=== PATIENT | male | born 1990 | race Caucasian/White ===

== ENCOUNTER 2018-10-30 23:20 | Emergency (ER) | payer MEDICAID ==
--- NOTE | 2018-10-30 23:33 | EDM.PDOC ---
ED HPI GENERAL MEDICAL PROBLEM - General Chief Complaint: General Stated Complaint: Dental Pain Time Seen by Provider: 10/30/18 23:25 Source of Information: Reports: Patient History Limitations: Reports: No Limitations - History of Present Illness INITIAL COMMENTS - FREE TEXT/NARRATIVE: Patient states he is here tonight secondary to a fractured tooth is half for about 9 months of the pains got worse last 3 days he took one naproxen about an hour before arrival here and it does not work his pain is 8 out of 10 throbbing he has not seen a dentist secondary to no dental insurance he denies any trouble eating drinking smoking no trouble with swallowing no throat tightness no drainage from the tooth no fever or sinus pain no headache no vision issues Duration: Day(s): Quality: Reports: Ache, Throbbing Severity: Moderate Improves with: Reports: None Treatments [employer]: Reports: NSAIDS ED ROS GENERAL - Review of Systems Review Of Systems: See Below Constitutional: Denies: Fever, Chills, Malaise, Weakness HEENT: Reports: Dental Pain. Denies: Eye Discharge, Eye Pain, Nose Pain, Rhinitis, Sinus Problem, Throat Pain, Throat Swelling Respiratory: Reports: No Symptoms Cardiovascular: Reports: No Symptoms Endocrine: Reports: No Symptoms GI/Abdominal: Reports: No Symptoms : Reports: No Symptoms Musculoskeletal: Reports: No Symptoms Skin: Reports: No Symptoms Neurological: Reports: No Symptoms Immunologic: Reports: No Symptoms ED EXAM, GENERAL - Physical Exam Exam: See Below Exam Limited By: No Limitations General Appearance: Alert, WD/WN, No Apparent Distress Eye Exam: Bilateral Eye: PERRL, Other (Normal EOMI) Ears: Normal External Exam Nose: Normal Inspection, Normal Mucosa Throat/Mouth: Normal Inspection, Normal Lips, Normal Teeth, Normal Gums, Normal Oropharynx, Normal Voice, No Airway Compromise, Other (Noted partial fracture to #30 no signs or symptoms of secondary abscess no tenderness to palpation no signs or symptoms of lymphadenopathy, soft soft palate of mouth is soft no signs of any Jose A angina in line Uvula no edema or exudate noted to the tonsils) Head: Atraumatic, Normocephalic Neck: Normal Inspection, Supple, Non-Tender, Full Range of Motion. No: Lymphadenopathy (L) Respiratory/Chest: No Respiratory Distress, No Accessory Muscle Use Neurological: Alert, Oriented, CN II-XII Intact Departure - Departure Time of Disposition: 23:35 Disposition: Home, Self-Care 01 Condition: Good Clinical Impression: Pain, dental - Discharge Information *PRESCRIPTION DRUG MONITORING PROGRAM REVIEWED*: No *COPY OF PRESCRIPTION DRUG MONITORING REPORT IN PATIENT RENAE: No Instructions: Benzocaine mouth gel, ointment, solution, or dental paste Referrals: PCP,None [Primary Care Provider] - Forms: ED Department Discharge Additional Instructions: Take 1-2 Tylenol by mouth every 4-6 hours as needed follow directions on the box he may take Motrin 600 mg every 8 hours follow directions on the box follow up with a dentist in the next 24-48-72 hours return to emergency room if anything gets worse or changes - Problem List & Annotations (1) Pain, dental SNOMED Code(s): 66707279 Code(s): K08.89 - OTHER SPECIFIED DISORDERS OF TEETH AND SUPPORTING STRUCTURES Status: Acute
== END 2018-10-30 23:39 | disposition home or self-care (01) ==
LOC: VM.ED 23:25
DX: K08.89 Other specified disorders of teeth and supporting structures (principal)
CPT/HCPCS: 99282

== ENCOUNTER 2018-11-06 21:56 | Emergency (ER) | payer MEDICAID ==
[2018-11-06] MEDS ORDERED: Take Home: Amoxicillin/Clavulanate K 875-125 MG Tab, 2 Tab Pack PO ONE (22:15)
[2018-11-06] MEDS ORDERED: Take Home: Acetaminophen/Codeine 300 MG/30 MG, 5 Tab Pack PO ONE (22:15)
--- NOTE | 2018-11-07 00:18 | EDM.PDOC ---
ED HPI GENERAL MEDICAL PROBLEM - General Stated Complaint: TOOTH PAIN Time Seen by Provider: 11/06/18 21:57 Source of Information: Reports: Patient, Family History Limitations: Reports: No Limitations - History of Present Illness INITIAL COMMENTS - FREE TEXT/NARRATIVE: Pt. presents to ER with complaints of swelling to R upper lateral gums and dental pain. Pt. states that he as seen in ER last week with a fractured tooth. Apparently there was no obvious infection present so he was advised to follow- up with dentist. Pt. states that he does not have dental insurance and "doesn't know any dentists". He states that he has only tried one dentist in town, Dr. Villagomez. Pt. denies any fever or chills. No chest pain or shortness of breath. No difficulty with swallowing or managing his secretions. Onset Date: 11/02/18 Location: Reports: Head, Face Quality: Reports: Throbbing Severity: Severe - Related Data Allergies Allergy/AdvReac Type Severity Reaction Status Date / Time bee pollen Allergy Anaphylactic Verified 10/31/18 00:27 Shock Home Meds: Home Meds . [Unable to Verify Home Med List] 10/31/18 [History] Past Medical History - Past Surgical History GI Surgical History: Reports: Appendectomy Musculoskeletal Surgical History: Reports: Other (See Below) Other Musculoskeletal Surgeries/Procedures:: Surgery to have pins placed for a broken hand ED ROS GENERAL - Review of Systems Review Of Systems: See Below Constitutional: Reports: No Symptoms HEENT: Reports: Dental Pain Respiratory: Reports: No Symptoms Cardiovascular: Reports: No Symptoms Endocrine: Reports: No Symptoms GI/Abdominal: Reports: No Symptoms : Reports: No Symptoms Musculoskeletal: Reports: No Symptoms Skin: Reports: No Symptoms Neurological: Reports: No Symptoms Psychiatric: Reports: No Symptoms Hematologic/Lymphatic: Reports: No Symptoms Immunologic: Reports: No Symptoms ED EXAM, GENERAL - Physical Exam Exam: See Below Exam Limited By: No Limitations General Appearance: Alert, WD/WN, No Apparent Distress Throat/Mouth: Other (poor dentition. small abscess noted to R upper lateral gums. Approx. 0.5 cm in diameter. No edema or cellulitis to hypopharynx.) Head: Atraumatic, Normocephalic Neck: Normal Inspection, Supple, Non-Tender, Full Range of Motion Course - Orders/Labs/Meds Meds: Medications Discontinued Medications Generic Name Dose Route Start Last Admin Trade Name Rajiv PRN Reason Stop Dose Admin Acetaminophen/Codeine Phosphate 1 packet 11/06/18 22:15 11/06/18 22:29 Take Home: Acetam/Codeine 300-30 Mg, 5 Pack PO 11/06/18 22:16 1 packet ONETIME ONE Administration Amoxicillin/Clavulanate Potassium 1 packet 11/06/18 22:15 11/06/18 22:29 Take Home: Amox/Clavulanate 875-12, 2 Tab Pac PO 11/06/18 22:16 1 packet ONETIME ONE Administration Departure - Departure Time of Disposition: 00:20 Disposition: Home, Self-Care 01 Clinical Impression: Pain, dental - Discharge Information Instructions: Dental Abscess Referrals: PCP,None [Primary Care Provider] - Additional Instructions: Augmentin 875mg 1 twice daily for 10 days Tylenol #3 1 every 4-6 hours as needed for pain Ibuprofen 200mg 3 tabs twice every 6 hours as needed for pain Follow-up with dentist as soon as possible. You may have to "google" many dental clinics to determine if you can find one that accepts self pay. - Assessment/Plan Plan: Augmentin 875mg 1 twice daily for 10 days Tylenol #3 1 every 4-6 hours as needed for pain Ibuprofen 200mg 3 tabs twice every 6 hours as needed for pain Follow-up with dentist as soon as possible. You may have to "google" many dental clinics to determine if you can find one that accepts self pay. Pt. was given information about free or discounted dental in the [place] area.
== END 2018-11-06 22:38 | disposition home or self-care (01) ==
LOC: VM.ED 21:56
DX: K08.89 Other specified disorders of teeth and supporting structures (principal); K05.219 Aggressive periodontitis, localized, unspecified severity; Z91.030 Bee allergy status
CPT/HCPCS: 99282; A9270